=== PATIENT | male | born 1950 | race African-American/Black ===

== ENCOUNTER 2018-12-29 14:20 | Emergency (ER) | payer BC, MEDICARE ==
[~2018-12-29] VITALS: Ht 172.7 cm; Wt 95.0 kg
[2018-12-29] MEDS ORDERED: IPRATROPIUM BROMIDE (0.02%) 0.5MG/2.5ML NEB HHN STA (15:42)
[2018-12-29] MEDS ORDERED: ALBUTEROL (0.083%) 2.5MG/3ML NEB HHN STA (15:42)
[2018-12-29] MEDS ORDERED: DEXAMETHASONE 10 MG/ML VIAL PO ONE (15:45)
[2018-12-29 16:17] LABS: BASOPHILS % 0.6 % (0.0-2.0); CHLORIDE 106 mEq/L (98-107); EOSINOPHILS % 2.3 % (0.0-5.0); HEMATOCRIT. 46.2 % (42.0-52.0); HEMOGLOBIN. 15.6 g/dL (14.0-18.0); LYMPHOCYTES % 22.4 % (20.0-50.0); MEAN CORPUSCULAR HEMOGLOBIN 32.3 pg (28.0-32.0); MEAN CORPUSCULAR VOLUME 95.6 fL (80.0-94.0); MEAN PLATELET VOLUME 10.6 fl (7.4-10.4); MONOCYTES % 5.8 % (2.0-8.0); NEUTROPHILS % 68.9 % (40.0-76.0); PLATELET 174 x1000/uL (130-400); RED BLOOD CELL COUNT 4.83 mill/uL (4.7-6.1); RED CELL DISTRIBUTION WIDTH 12.7 % (11.6-14.6)
[2018-12-29] MEDS ORDERED: ASPIRIN 81MG TABLET PO ONE (19:15)
[2018-12-29 19:29] LABS: INR 1.1; PARTIAL THROMBOPLASTIN TIME 25.9 sec (23.4-31.0); PROTHROMBIN TIME 11.5 sec (9.6-11.0)
[2018-12-29 22:37] VITALS: BP 167/86
== END 2018-12-29 22:41 | disposition short-term general hospital (02) ==
LOC: ER 14:20 → CANBEDREQ 22:14 → ER 22:41
DX: R06.00 Dyspnea, unspecified (principal); R06.02 Shortness of breath; R05 Cough; E78.00 Pure hypercholesterolemia, unspecified; I10 Essential (primary) hypertension; R07.89 Other chest pain
CPT/HCPCS: 36415; 71046; 80053; 83880; 84484; 85025; 85610; 85730; 93005; 94640; 99285; J1100; J7611

== ENCOUNTER 2020-10-03 14:34 | Emergency (ER) | payer BC, MEDICARE ==
[2020-10-03] MEDS ORDERED: ALBUTEROL (14:49)
[2020-10-03] MEDS ORDERED: CARVEDILOL (14:49)
[2020-10-03] MEDS ORDERED: LOSARTAN (14:49)
[2020-10-03] MEDS ORDERED: PRAVASTATIN (14:49)
[2020-10-03 16:08] LABS: BASOPHILS % 1.5 % (0.0-2.0); EOSINOPHILS % 2.8 % (0.0-5.0); HEMATOCRIT. 45.9 % (42.0-52.0); HEMOGLOBIN. 15.5 g/dL (14.0-18.0); LYMPHOCYTES % 19.2 % (20.0-50.0); MEAN CORPUSCULAR HEMOGLOBIN 32.4 pg (28.0-32.0); MEAN CORPUSCULAR VOLUME 95.7 fL (80.0-94.0); MONOCYTES % 6.7 % (2.0-8.0); NEUTROPHILS % 69.8 % (40.0-76.0); PLATELET 196 x1000/uL (130-400)
[2020-10-03 16:16] LABS: CHLORIDE 109 mEq/L (98-107)
[2020-10-03 16:20] LABS: ETHANOL BLOOD < 10 mg/dL
[2020-10-03 18:59] VITALS: BP 143/71
== END 2020-10-03 19:05 | disposition home or self-care (01) ==
LOC: ER 14:34
DX: R06.02 Shortness of breath (principal); F41.9 Anxiety disorder, unspecified; J45.909 Unspecified asthma, uncomplicated; I10 Essential (primary) hypertension; E78.00 Pure hypercholesterolemia, unspecified; Z98.61 Coronary angioplasty status
CPT/HCPCS: 36415; 71045; 80053; 80320; 83735; 83880; 84484; 85025; 99284; G0480

== ENCOUNTER 2022-07-11 06:01 | Inpatient (IN) | payer OTHER ==
[~2022-07-11] VITALS: Ht 167.6 cm; Wt 82.8 kg
[~2022-07-11 06:01] MED LIST: ALBUTEROL; CARVEDILOL; LOSARTAN; PRAVASTATIN
[2022-07-11 06:59] LABS: BASOPHILS % 0.7 % (0.0-2.0); EOSINOPHILS % 6.8 % (0.0-5.0); HEMATOCRIT. 37.9 % (42.0-52.0); HEMOGLOBIN. 12.9 g/dL (14.0-18.0); LYMPHOCYTES % 31.8 % (20.0-50.0); MEAN CORPUSCULAR HEMOGLOBIN 33.3 pg (28.0-32.0); MEAN CORPUSCULAR VOLUME 97.5 fL (80.0-94.0); MEAN PLATELET VOLUME 9.1 fl (7.4-10.4); NEUTROPHILS % 54.7 % (40.0-76.0); PLATELET 203 x1000/uL (130-400); RED BLOOD CELL COUNT 3.89 mill/uL (4.7-6.1); RED CELL DISTRIBUTION WIDTH 14.5 % (11.6-14.6)
[2022-07-11 07:15] LABS: CHLORIDE 112 mEq/L (98-107)
[2022-07-11] MEDS ORDERED: CLONIDINE 0.1MG TABLET PO PRN (16:30)
[2022-07-11] MEDS ORDERED: NA PHOS,M-B/NA PHOS,DI-BA ENEMA 118ML PR PRN (16:30)
[2022-07-11] MEDS ORDERED: ONDANSETRON HCL 4MG/2ML INJ IV PRN (16:30)
[2022-07-11] MEDS ORDERED: IPRATROPIUM/ALBUTEROL 0.5-3(2.5)MG/3ML NEB NEB PRN (16:30)
[2022-07-11] MEDS ORDERED: NITROGLYCERIN 0.4MG TABLET SL SL PRN (16:30)
[2022-07-11] MEDS ORDERED: DOCUSATE SODIUM 100MG CAPSULE PO PRN (16:30)
[2022-07-11] MEDS ORDERED: ACETAMINOPHEN 325MG TABLET PO PRN ×2 (16:30)
[2022-07-11] MEDS ORDERED: GUAIFENESIN 200MG/10ML SUGAR FREE UDC PO PRN (16:30)
[2022-07-11] MEDS ORDERED: MAGNESIUM/ALUMINUM HYDROXIDE/SIMETHICONE 30ML UDC PO PRN (16:30)
[2022-07-11] MEDS ORDERED: ALBUTEROL (0.083%) 2.5MG/3ML NEB HHN PRN (16:45)
[2022-07-11] MEDS ORDERED: IPRATROPIUM BROMIDE (0.02%) 0.5MG/2.5ML NEB HHN PRN (16:45)
[2022-07-11 17:00] LABS: ETHANOL BLOOD < 10 mg/dL; HDL CHOLESTEROL 78 mg/dL (40-59); LDL CHOLESTEROL 199 mg/dL (5-100); T4 FREE 1.02 ng/dL (0.76-1.46); TOTAL IRON BINDING CAPACITY 164 ug/dL (250-450)
[2022-07-11] MEDS: ENOXAPARIN 40MG/0.4ML SYR SUBCUT SCH (17:00)
[2022-07-11 17:18] LABS: VITAMIN B12 SERUM 369 pg/mL (211-911)
[2022-07-11] MEDS: AMLODIPINE 5MG TABLET PO SCH (19:00)
[2022-07-11 21:35] VITALS: BP 154/89
[2022-07-11] MEDS: FAMOTIDINE 20MG TABLET PO SCH (21:49)
[2022-07-11] MEDS: ATORVASTATIN CALCIUM 40MG TABLET PO SCH (21:49)
[2022-07-11] MEDS ORDERED: CARV12.545 PO (23:29)
[2022-07-11] MEDS ORDERED: FURO-152 PO (23:29)
[2022-07-11] MEDS: ZOLPIDEM TARTRATE 5MG TABLET PO PRN (23:38)
[2022-07-11 23:43] LABS: *AMPHETAMINES SCREEN URINE NEGATIVE (NEGATIVE); *BARBITURATES SCREEN URINE NEGATIVE (NEGATIVE); *BENZODIAZEPINES SCREEN URINE NEGATIVE (NEGATIVE); *COCAINE SCREEN URINE NEGATIVE (NEGATIVE); CANNABINOID URINE SCREEN NEGATIVE (NEGATIVE); METHADONE URINE SCREEN NEGATIVE (NEGATIVE); OPIATES URINE SCREEN NEGATIVE (NEGATIVE); PHENCYCLIDINE URINE SCREEN NEGATIVE (NEGATIVE)
[2022-07-11 23:59] VITALS: BP 129/72
[2022-07-12 01:40] LABS: CREATINE KINASE MB FRACTION 1.8 ng/mL (0.5-3.6)
[2022-07-12 04:00] VITALS: BP 115/77
[2022-07-12 07:14] LABS: BASOPHILS % 0.5 % (0.0-2.0); EOSINOPHILS % 6.2 % (0.0-5.0); HEMOGLOBIN. 12.5 g/dL (14.0-18.0); LYMPHOCYTES % 30.3 % (20.0-50.0); MEAN CORPUSCULAR HEMOGLOBIN 33.1 pg (28.0-32.0); MEAN CORPUSCULAR VOLUME 95.4 fL (80.0-94.0); MEAN PLATELET VOLUME 9.7 fl (7.4-10.4); MONOCYTES % 5.8 % (2.0-8.0); NEUTROPHILS % 57.2 % (40.0-76.0); PLATELET 199 x1000/uL (130-400); RED BLOOD CELL COUNT 3.78 mill/uL (4.7-6.1); RED CELL DISTRIBUTION WIDTH 14.1 % (11.6-14.6)
[2022-07-12 07:25] LABS: CHLORIDE 111 mEq/L (98-107)
[2022-07-12 07:41] LABS: CREATINE KINASE 74 IU/L (39-308); CREATINE KINASE MB FRACTION 1.7 ng/mL (0.5-3.6); PHOSPHORUS 3.4 mg/dL (2.5-4.9)
[2022-07-12 08:00] VITALS: BP 104/62
[2022-07-12] MEDS: AMLODIPINE 5MG TABLET PO SCH (09:00)
[2022-07-12] MEDS: ASPIRIN 325MG EC TABLET PO SCH (09:17)
[2022-07-12] MEDS: FAMOTIDINE 20MG TABLET PO SCH ×2 (09:17→20:16)
[2022-07-12] MEDS ORDERED: PNEUMOCOCCAL 23-VAL P-SAC VAC 0.5 ML IM ONE (11:00)
[2022-07-12] MEDS ORDERED: INFLUENZA VACCINE 05/PF 0.5 ML SYRINGE IM ONE (11:00)
[2022-07-12 12:00] VITALS: BP 116/69
[2022-07-12] MEDS: KETOROLAC 15MG/ML VIAL IV PRN (13:33)
[2022-07-12 16:00] VITALS: BP 138/86
[2022-07-12] MEDS: ENOXAPARIN 40MG/0.4ML SYR SUBCUT SCH (17:31)
[2022-07-12 20:00] VITALS: BP 122/67
[2022-07-12] MEDS: ATORVASTATIN CALCIUM 40MG TABLET PO SCH (20:16)
[2022-07-12] MEDS: ZOLPIDEM TARTRATE 5MG TABLET PO PRN (22:15)
[2022-07-13 04:00] VITALS: BP 98/43
[2022-07-13 07:00] LABS: HEMATOCRIT 38.5 % (42.0-52.0); HEMOGLOBIN 13.1 g/dL (14.0-18.0); MEAN CORPUSCULAR HEMOGLOBIN 32.9 pg (28.0-32.0); MEAN CORPUSCULAR VOLUME 96.4 fL (80.0-94.0); PLATELET 200 x1000/uL (130-400); RED BLOOD CELL COUNT 3.99 mill/uL (4.7-6.1); RED CELL DISTRIBUTION WIDTH 14.5 % (11.6-14.6)
[2022-07-13 07:02] LABS: CHLORIDE 109 mEq/L (98-107)
[2022-07-13 08:00] VITALS: BP 106/69
[2022-07-13] MEDS: AMLODIPINE 5MG TABLET PO SCH (08:16)
[2022-07-13] MEDS: FAMOTIDINE 20MG TABLET PO SCH ×2 (08:20→20:24)
[2022-07-13] MEDS: ASPIRIN 325MG EC TABLET PO SCH (08:20)
[2022-07-13] MEDS: KETOROLAC 15MG/ML VIAL IV PRN (10:48)
[2022-07-13 12:00] VITALS: BP 130/78
[2022-07-13] MEDS: FUROSEMIDE 40MG/4ML VIAL IVP SCH ×2 (12:06→17:10)
[2022-07-13 16:00] VITALS: BP 140/63
[2022-07-13] MEDS: ENOXAPARIN 40MG/0.4ML SYR SUBCUT SCH (17:10)
[2022-07-13 20:00] VITALS: BP 125/77
[2022-07-13] MEDS: ZOLPIDEM TARTRATE 5MG TABLET PO PRN (20:24)
[2022-07-13] MEDS: ATORVASTATIN CALCIUM 40MG TABLET PO SCH (20:24)
[2022-07-14] VITALS: BP 125/77
[2022-07-14 04:00] VITALS: BP 115/58
[2022-07-14 06:00] LABS: CHLORIDE 109 mEq/L (98-107)
[2022-07-14] MEDS: FUROSEMIDE 40MG/4ML VIAL IVP SCH ×4 (06:11→17:28)
[2022-07-14 06:47] LABS: BASOPHILS % 0.7 % (0.0-2.0); EOSINOPHILS % 7.8 % (0.0-5.0); HEMATOCRIT. 37.4 % (42.0-52.0); HEMOGLOBIN. 12.9 g/dL (14.0-18.0); LYMPHOCYTES % 32.3 % (20.0-50.0); MEAN PLATELET VOLUME 9.9 fl (7.4-10.4); MONOCYTES % 11.3 % (2.0-8.0); NEUTROPHILS % 47.9 % (40.0-76.0); PLATELET 203 x1000/uL (130-400); RED CELL DISTRIBUTION WIDTH 14.2 % (11.6-14.6)
[2022-07-14 08:00] VITALS: BP 123/76
[2022-07-14] MEDS: ASPIRIN 325MG EC TABLET PO SCH (08:37)
[2022-07-14] MEDS: FAMOTIDINE 20MG TABLET PO SCH ×2 (08:37→21:21)
[2022-07-14] MEDS: AMLODIPINE 5MG TABLET PO SCH (08:38)
[2022-07-14] MEDS: SUCRALFATE 1G TABLET PO SCH ×3 (11:47→21:21)
[2022-07-14 12:00] VITALS: BP 109/79
[2022-07-14 16:00] VITALS: BP 105/73
[2022-07-14] MEDS: ENOXAPARIN 40MG/0.4ML SYR SUBCUT SCH (17:29)
[2022-07-14 20:00] VITALS: BP 120/72
[2022-07-14] MEDS: ATORVASTATIN CALCIUM 40MG TABLET PO SCH (21:21)
[2022-07-15] VITALS: BP 104/65
[2022-07-15 04:00] VITALS: BP 117/72
[2022-07-15] MEDS: SUCRALFATE 1G TABLET PO SCH ×4 (06:02→21:10)
[2022-07-15] MEDS: FUROSEMIDE 40MG/4ML VIAL IVP SCH (06:02)
[2022-07-15 08:00] VITALS: BP 107/67
[2022-07-15] MEDS: AMLODIPINE 5MG TABLET PO SCH (08:08)
[2022-07-15] MEDS: ASPIRIN 325MG EC TABLET PO SCH (08:08)
[2022-07-15] MEDS: FAMOTIDINE 20MG TABLET PO SCH ×2 (08:08→21:10)
[2022-07-15] MEDS: METOPROLOL TARTRATE 25MG TABLET PO SCH ×2 (11:43→20:38)
[2022-07-15 12:00] VITALS: BP 133/79
[2022-07-15] MEDS ORDERED: NITROGLYCERIN SPRAY/4.9GM CAN TL NR (14:15)
[2022-07-15 16:00] VITALS: BP 120/73
[2022-07-15] MEDS ORDERED: IOHEXOL-350 100 ML BOTTLE ONE (16:10)
[2022-07-15] MEDS: ENOXAPARIN 40MG/0.4ML SYR SUBCUT SCH (17:54)
[2022-07-15 20:00] VITALS: BP 103/58
[2022-07-15] MEDS: ATORVASTATIN CALCIUM 40MG TABLET PO SCH (21:10)
[2022-07-16] VITALS: BP 125/86
[2022-07-16 04:00] VITALS: BP 112/60
[2022-07-16] MEDS: SUCRALFATE 1G TABLET PO SCH (06:12)
[2022-07-16 08:00] VITALS: BP 100/62
[2022-07-16] MEDS: AMLODIPINE 5MG TABLET PO SCH (08:25)
[2022-07-16] MEDS: METOPROLOL TARTRATE 25MG TABLET PO SCH (08:25)
[2022-07-16] MEDS: FAMOTIDINE 20MG TABLET PO SCH (08:32)
[2022-07-16] MEDS ORDERED: ASPIRIN 81MG TABLET PO SCH (09:00)
[2022-07-16] MEDS ORDERED: FUROSEMIDE 40MG TABLET PO SCH (09:00)
[2022-07-16] MEDS ORDERED: AMLO5TAB88 PO (09:57)
[2022-07-16] MEDS ORDERED: METO25TA6 PO (09:57)
[2022-07-16] MEDS ORDERED: FURO40TA5 PO (09:57)
[2022-07-16] MEDS ORDERED: ASPI-1160 PO (09:57)
[2022-07-16 12:00] VITALS: BP 119/83
[2022-07-16 12:24] VITALS: BP 100/62
== END 2022-07-16 14:15 | disposition home health service (06) | DRG 291 ==
LOC: ER 06:01 → 8WST 15:55 → EDBEDREQTM 15:56 → EDBEDREQ 15:56 → SUPCPDRO 16:22
PROVIDERS: ADMIT Internal Medicine; ATTEND Internal Medicine
DX: I11.0 Hypertensive heart disease with heart failure (principal); E43 Unspecified severe protein-calorie malnutrition; I50.33 Acute on chronic diastolic (congestive) heart failure; I25.110 Atherosclerotic heart disease of native coronary artery with unstable angina pectoris; E78.5 Hyperlipidemia, unspecified; Z79.899 Other long term (current) drug therapy; Z68.29 Body mass index [BMI] 29.0-29.9, adult; Z79.82 Long term (current) use of aspirin; Z98.61 Coronary angioplasty status
CPT/HCPCS: 36415; 71045; 75571; 80048; 80053; 80061; 80305; 80320; 82550; 82553; 82607; 82746; 83036; 83540; 83550; 83735; 83880; 84100; 84439; 84443; 84484; 85025; 85027; 85379; 87426; 90686; 93005; 93306; 93970; 97161; 97166; 99285; J1650; J1885; J1940; Q9967; G0480

== ENCOUNTER 2022-11-07 16:43 | Emergency (ER) | payer OTHER ==
[~2022-11-07] VITALS: Ht 170.2 cm; Wt 80.5 kg
[~2022-11-07 16:43] MED LIST changes: -ALBUTEROL; +AMLO5TAB88 PO; +ASPI-1160 PO; +CARV12.545 PO; -CARVEDILOL; +FURO40TA5 PO; -LOSARTAN; +METO25TA6 PO; -PRAVASTATIN
[2022-11-07] MEDS ORDERED: FUROSEMIDE 40MG/4ML VIAL IVP ONE (17:30)
[2022-11-07 17:48] LABS: BASOPHILS % 1.4 % (0.0-2.0); EOSINOPHILS % 4.6 % (0.0-5.0); HEMATOCRIT. 38.4 % (42.0-52.0); LYMPHOCYTES % 32.5 % (20.0-50.0); MEAN CORPUSCULAR HEMOGLOBIN 33.1 pg (28.0-32.0); MEAN PLATELET VOLUME 8.9 fl (7.4-10.4); MONOCYTES % 5.7 % (2.0-8.0); NEUTROPHILS % 55.8 % (40.0-76.0); PLATELET 259 x1000/uL (130-400); RED BLOOD CELL COUNT 3.92 mill/uL (4.7-6.1)
[2022-11-07 17:56] LABS: CHLORIDE 108 mEq/L (98-107)
[2022-11-07 17:57] LABS: INR 1.1; PROTHROMBIN TIME 11.6 sec (9.6-11.0)
[2022-11-07 21:30] VITALS: BP 133/84
== END 2022-11-07 22:52 | disposition home or self-care (01) ==
LOC: ER 16:43
DX: I11.0 Hypertensive heart disease with heart failure (principal); I50.9 Heart failure, unspecified
CPT/HCPCS: 36415; 71045; 80053; 83880; 84484; 85025; 93005; 99285

== ENCOUNTER 2022-11-15 22:55 | Emergency (ER) | payer OTHER ==
[~2022-11-15] VITALS: Ht 177.8 cm; Wt 64.0 kg
[2022-11-15 22:58] VITALS: BP 156/90
[2022-11-15] MEDS ORDERED: AMOX1TAB16 MT (23:28)
== END 2022-11-16 00:39 | disposition home or self-care (01) ==
LOC: ER 23:51
DX: S00.01XA Abrasion of scalp, initial encounter (principal); W54.0XXA Bitten by dog, initial encounter; Y93.89 Activity, other specified; Y92.89 Other specified places as the place of occurrence of the external cause; Y99.8 Other external cause status; I11.0 Hypertensive heart disease with heart failure; I50.9 Heart failure, unspecified; E11.9 Type 2 diabetes mellitus without complications
CPT/HCPCS: 99283